=== PATIENT | male | born 1985 | race Caucasian/White ===

== ENCOUNTER 2018-07-01 20:00 | Inpatient (IN) | payer MEDICARE, MEDICAID ==
[~2018-07-01] VITALS: Ht 185.4 cm; Wt 107.0 kg
[~2018-07-01 20:00] MED LIST: BUSP10TA10 PO; CLIN-5 PO; CLON0.2T PO; HYDR-569 PO; OLAN10TA3 PO; QUET200T3 PO; QUET400T3 PO; TRIH5TAB2 PO; VENL75CA55 PO
[2018-07-01] MEDS ORDERED: mag hydrox/Alum hydrox/simeth 30ml oral suspension PO PRN (21:50)
[2018-07-01] MEDS ORDERED: acetaminophen 325mg tablet PO PRN ×2 (21:50)
[2018-07-01] MEDS ORDERED: NICOTINE POLACRILEX 4 MG LOZENGE BC PRN (21:50)
[2018-07-01] MEDS ORDERED: magnesium hydroxide 30ml (MOM) UD suspension PO PRN (21:50)
[2018-07-01 22:29] VITALS: BP 120/70
[2018-07-01] MEDS: hydrOXYzine 25 MG tablet PO PRN (22:45)
[2018-07-01] MEDS: traZODone 50mg tablet PO PRN (22:45)
[2018-07-01] MEDS ORDERED: QUETIAPINE 200 MG TAB.SR.24H PO ONE (23:30)
[2018-07-01] MEDS ORDERED: trihexyphenidyl HCL 5 MG tablet PO ONE (23:30)
[2018-07-01] MEDS ORDERED: cloNIDine 0.1 mg tablet PO ONE (23:30)
[2018-07-02 07:51] LABS: HEMOGLOBIN A1C 5.4 % (4.5-6.2)
[2018-07-02] MEDS: cloNIDine 0.1 mg tablet PO SCH ×2 (07:56→20:26)
[2018-07-02] MEDS: trihexyphenidyl HCL 5 MG tablet PO SCH ×2 (07:56→20:26)
[2018-07-02] MEDS: nicotine 21mg patch - 24 hr TD SCH (07:56)
[2018-07-02] MEDS: QUETIAPINE 200 MG TAB.SR.24H PO SCH ×2 (07:56→20:27)
[2018-07-02] MEDS: busPIRone 5mg tablet PO SCH ×3 (07:57→20:27)
[2018-07-02 08:00] VITALS: BP 102/72
[2018-07-02] MEDS ORDERED: venlafaxine XR 75mg capsule (Q24H) PO SCH ×2 (08:00→09:00)
[2018-07-02] MEDS ORDERED: cloNIDine 0.1 mg tablet PO SCH (08:00)
[2018-07-02 08:01] LABS: CHOL/HDL RATIO 3.4 (0.00-4.99); CHOLESTEROL 147 MG/DL (0-200); HDL CHOLESTEROL 43 MG/DL (35-60); LDL CHOLESTEROL 91 MG/DL (50-100); TRIGLYCERIDES 96 MG/DL (20-135)
[2018-07-02] MEDS ORDERED: venlafaxine XR 75mg capsule (Q24H) PO ONE (09:00)
[2018-07-02] MEDS: HYDROcodone/acetaminophen 5mg/325mg tablet PO PRN ×3 (09:05→19:44)
[2018-07-02] MEDS: diazepam 5mg tablet PO PRN ×3 (09:28→20:32)
[2018-07-02] MEDS: ibuprofen tablet 400 MG TABLET PO PRN (19:44)
[2018-07-02] MEDS: clindamycin 150mg capsule PO SCH (20:27)
[2018-07-02 20:30] VITALS: BP 112/71
[2018-07-02] MEDS: traZODone 50mg tablet PO PRN (20:32)
[2018-07-03] MEDS: HYDROcodone/acetaminophen 5mg/325mg tablet PO PRN ×5 (01:17→20:47)
[2018-07-03] MEDS: ibuprofen tablet 400 MG TABLET PO PRN (01:18)
[2018-07-03] MEDS: nicotine 21mg patch - 24 hr TD SCH (07:42)
[2018-07-03] MEDS: clindamycin 150mg capsule PO SCH ×4 (07:43→20:45)
[2018-07-03] MEDS: busPIRone 5mg tablet PO SCH ×3 (07:43→20:45)
[2018-07-03] MEDS: cloNIDine 0.1 mg tablet PO SCH ×2 (07:43→20:44)
[2018-07-03 08:00] VITALS: BP 111/91
[2018-07-03] MEDS: QUETIAPINE 200 MG TAB.SR.24H PO SCH ×2 (08:02→20:46)
[2018-07-03] MEDS: diazepam 5mg tablet PO PRN ×3 (08:02→20:46)
[2018-07-03] MEDS: trihexyphenidyl HCL 5 MG tablet PO SCH ×2 (08:02→20:44)
[2018-07-03] MEDS: venlafaxine XR 75mg capsule (Q24H) PO SCH (08:03)
[2018-07-03 19:56] VITALS: BP 125/86
[2018-07-03] MEDS: lactobacillus rhamnosus 10,000 MMU CELLS/CAPSULE PO SCH (20:45)
[2018-07-03] MEDS: traZODone 50mg tablet PO PRN ×2 (20:46→21:49)
[2018-07-03] MEDS: hydrOXYzine 25 MG tablet PO PRN (21:49)
[2018-07-04] MEDS: ibuprofen tablet 400 MG TABLET PO PRN ×3 (03:53→19:37)
[2018-07-04] MEDS: HYDROcodone/acetaminophen 5mg/325mg tablet PO PRN ×4 (03:54→17:45)
[2018-07-04 08:00] VITALS: BP 119/70
[2018-07-04] MEDS: venlafaxine XR 75mg capsule (Q24H) PO SCH (08:10)
[2018-07-04] MEDS: nicotine 21mg patch - 24 hr TD SCH (08:10)
[2018-07-04] MEDS: busPIRone 5mg tablet PO SCH ×3 (08:10→21:18)
[2018-07-04] MEDS: lactobacillus rhamnosus 10,000 MMU CELLS/CAPSULE PO SCH ×2 (08:11→19:36)
[2018-07-04] MEDS: cloNIDine 0.1 mg tablet PO SCH ×2 (08:11→19:36)
[2018-07-04] MEDS: clindamycin 150mg capsule PO SCH ×4 (08:11→21:17)
[2018-07-04] MEDS: QUETIAPINE 200 MG TAB.SR.24H PO SCH ×2 (08:11→21:19)
[2018-07-04] MEDS: trihexyphenidyl HCL 5 MG tablet PO SCH ×2 (08:11→19:37)
[2018-07-04] MEDS: diazepam 5mg tablet PO PRN ×3 (09:45→19:36)
[2018-07-04] MEDS ORDERED: HYDROcodone/acetaminophen 10/325mg tab PO ONE (19:20)
[2018-07-04] MEDS: hydrOXYzine 25 MG tablet PO PRN (19:37)
[2018-07-04] MEDS: olanzapine 10mg tablet PO PRN (19:37)
[2018-07-04] MEDS: traZODone 50mg tablet PO PRN ×2 (19:37→21:18)
[2018-07-04 19:56] VITALS: BP 110/61
[2018-07-05] MEDS: nicotine 21mg patch - 24 hr TD SCH ×2 (08:10→08:24)
[2018-07-05] MEDS: lactobacillus rhamnosus 10,000 MMU CELLS/CAPSULE PO SCH ×2 (08:18→20:36)
[2018-07-05] MEDS: venlafaxine XR 75mg capsule (Q24H) PO SCH (08:19)
[2018-07-05] MEDS: busPIRone 5mg tablet PO SCH ×3 (08:19→20:36)
[2018-07-05] MEDS: trihexyphenidyl HCL 5 MG tablet PO SCH ×2 (08:19→20:35)
[2018-07-05] MEDS: clindamycin 150mg capsule PO SCH ×4 (08:19→20:36)
[2018-07-05] MEDS: QUETIAPINE 200 MG TAB.SR.24H PO SCH ×2 (08:20→20:37)
[2018-07-05] MEDS: cloNIDine 0.1 mg tablet PO SCH ×2 (08:20→20:35)
[2018-07-05 08:34] VITALS: BP 123/71
[2018-07-05] MEDS: HYDROcodone/acetaminophen 5mg/325mg tablet PO PRN ×2 (08:38→09:05)
[2018-07-05] MEDS: ibuprofen tablet 400 MG TABLET PO PRN ×3 (08:38→22:19)
[2018-07-05] MEDS: diazepam 5mg tablet PO PRN ×2 (09:05→20:37)
[2018-07-05] MEDS: olanzapine 10mg tablet PO PRN (13:04)
[2018-07-05] MEDS: hydrOXYzine 25 MG tablet PO PRN (16:55)
[2018-07-05] MEDS: HYDROcodone/acetaminophen 10/325mg tab PO PRN ×2 (16:56→20:57)
[2018-07-05 19:36] VITALS: BP 114/84
[2018-07-05] MEDS: traZODone 50mg tablet PO PRN (20:37)
[2018-07-06] MEDS: HYDROcodone/acetaminophen 10/325mg tab PO PRN ×3 (01:16→10:10)
[2018-07-06] MEDS ORDERED: HYDR-3972 PO (08:09)
[2018-07-06] MEDS ORDERED: QUET400T54 PO (08:09)
[2018-07-06] MEDS ORDERED: BUSP10TA10 PO (08:09)
[2018-07-06] MEDS ORDERED: TRIH5TAB2 PO (08:09)
[2018-07-06] MEDS ORDERED: VENL150T3 PO (08:09)
[2018-07-06] MEDS ORDERED: TRAZ-218 PO (08:09)
[2018-07-06] MEDS ORDERED: QUET200T3 PO (08:09)
[2018-07-06] MEDS ORDERED: CLE150C PO (08:09)
[2018-07-06] MEDS ORDERED: VAL5T PO (08:09)
[2018-07-06] MEDS ORDERED: NICO-687 TD (08:09)
[2018-07-06] MEDS ORDERED: CLON0.1T20 PO (08:09)
[2018-07-06 08:18] VITALS: BP 116/64
[2018-07-06] MEDS: busPIRone 5mg tablet PO SCH ×2 (08:28→12:25)
[2018-07-06] MEDS: clindamycin 150mg capsule PO SCH ×2 (08:28→12:25)
[2018-07-06] MEDS: cloNIDine 0.1 mg tablet PO SCH (08:28)
[2018-07-06] MEDS: trihexyphenidyl HCL 5 MG tablet PO SCH (08:28)
[2018-07-06] MEDS: lactobacillus rhamnosus 10,000 MMU CELLS/CAPSULE PO SCH (08:28)
[2018-07-06] MEDS: QUETIAPINE 200 MG TAB.SR.24H PO SCH (08:29)
[2018-07-06] MEDS: venlafaxine XR 75mg capsule (Q24H) PO SCH (08:29)
[2018-07-06] MEDS: nicotine 21mg patch - 24 hr TD SCH (08:30)
[2018-07-06] MEDS: ibuprofen tablet 400 MG TABLET PO PRN (08:53)
[2018-07-06] MEDS: diazepam 5mg tablet PO PRN (08:53)
== END 2018-07-06 13:10 | disposition home or self-care (01) | DRG 885 ==
LOC: ADULT MH 20:00
PROVIDERS: ADMIT Psychiatry & Neurology Psychiatry; ATTEND Psychiatry & Neurology Psychiatry
DX: F33.2 Major depressive disorder, recurrent severe without psychotic features (principal); R45.851 Suicidal ideations; F41.9 Anxiety disorder, unspecified; G89.4 Chronic pain syndrome; F17.200 Nicotine dependence, unspecified, uncomplicated; F43.10 Post-traumatic stress disorder, unspecified; F60.9 Personality disorder, unspecified; K08.89 Other specified disorders of teeth and supporting structures; M54.9 Dorsalgia, unspecified; R68.84 Jaw pain; F12.90 Cannabis use, unspecified, uncomplicated; Z79.899 Other long term (current) drug therapy; Z88.8 Allergy status to other drugs, medicaments and biological substances; Z82.5 Family history of asthma and other chronic lower respiratory diseases
CPT/HCPCS: 36415; 80061; 83036; 84443; 87070; 99285; J3490; Q0177

== ENCOUNTER 2018-08-03 18:10 | Emergency (ER) | payer MEDICARE, MEDICAID ==
[~2018-08-03] VITALS: Ht 185.4 cm; Wt 100.0 kg
[~2018-08-03 18:10] MED LIST changes: +CLE150C PO; -CLIN-5 PO; +CLON0.1T20 PO; -CLON0.2T PO; +HYDR-3972 PO; -HYDR-569 PO; +NICO-687 TD; -OLAN10TA3 PO; -QUET400T3 PO; +QUET400T54 PO; +TRAZ-218 PO; +VAL5T PO; +VENL150T3 PO; -VENL75CA55 PO
[2018-08-03 18:59] LABS: BASOPHILS # (AUTO) 0.1 X10'3 (0-0.2); EOSINOPHILS # (AUTO) 0.3 X10'3 (0-0.9); EOSINOPHILS % (AUTO) 3.7 % (0-6); HEMATOCRIT 41.5 % (42.0-52.0); HEMOGLOBIN 14.2 g/dl (14.0-17.9); LYMPHOCYTES # (AUTO) 1.8 X10'3 (1.1-4.8); LYMPHOCYTES % (AUTO) 23.2 % (21-51); MEAN CORPUSCULAR HEMOGLOBIN 29.2 PG (27.0-31.0); MEAN CORPUSCULAR HGB CONC 34.2 % (33.0-36.5); MEAN CORPUSCULAR VOLUME 85.5 FL (78-98); MEAN PLATELET VOLUME 7.8 FL (7.4-10.4); MONOCYTES # (AUTO) 0.5 X10'3 (0-0.9); MONOCYTES % (AUTO) 6.7 % (2-12); NEUTROPHILS # (AUTO) 5.1 X10'3 (1.8-7.7); NEUTROPHILS % (AUTO) 65.4 % (42-75); PLATELET COUNT 236 X10'3 (140-440); RED BLOOD COUNT 4.85 X10'6 (4.70-6.10); RED CELL DISTRIBUTION WIDTH 14.3 % (11.5-14.5); WHITE BLOOD COUNT 7.8 X10'3 (4.5-11.0)
[2018-08-03 19:14] LABS: ALANINE AMINOTRANSFERASE 30 U/L (12-78); ALBUMIN 3.4 G/DL (3.4-5.0); ALBUMIN/GLOBULIN RATIO 1.1 (1.1-1.5); ALKALINE PHOSPHATASE 73 IU/L (46-116); ANION GAP 11 (8-16); ASPARTATE AMINO TRANSFERASE 18 U/L (10-37); BILIRUBIN,TOTAL 0.3 MG/DL (0.1-1.0); BLOOD UREA NITROGEN 12 MG/DL (7-18); CHLORIDE 107 MMOL/L (99-107); GLUCOSE 94 MG/DL (70-104); POTASSIUM 3.5 MMOL/L (3.5-5.1); SODIUM 146 MMOL/L (135-145); TOTAL CARBON DIOXIDE 28.3 MMOL/L (24-32); TOTAL PROTEIN 6.6 G/DL (6.4-8.2); eGFR 87 ML/MIN
[2018-08-03] MEDS ORDERED: QUETIAPINE 200 MG TAB.SR.24H PO STA (19:20)
[2018-08-03] MEDS ORDERED: DIAZEPAM 5 MG (19:21)
[2018-08-03] MEDS ORDERED: QUETIAPINE 400 MG ×2 (19:21)
[2018-08-03] MEDS ORDERED: VENLAFAXINE HCL 150 MG (19:21)
[2018-08-03] MEDS ORDERED: QUETIAPINE 200 MG (19:21)
[2018-08-03] MEDS ORDERED: TRAZODONE 50 MG (19:21)
[2018-08-03] MEDS ORDERED: Buspirone Hcl 10mg Tab (19:21)
[2018-08-03] MEDS ORDERED: CLONIDINE HCL 0.2 MG (19:21)
[2018-08-03 19:25] LABS: ETHANOL 0.141 GM/DL (0.0-0.010)
[2018-08-03] MEDS: quetiapine 100mg tablet PO STA ×2 (19:47→19:51)
[2018-08-03] MEDS: busPIRone 5mg tablet PO ONE ×2 (19:47→19:51)
[2018-08-03] MEDS: venlafaxine 37.5mg tablet PO ONE ×2 (19:47→19:51)
[2018-08-03] MEDS: diazepam 5mg tablet PO ONE ×2 (19:47→19:51)
[2018-08-03 20:45] LABS: URINE AMPHETAMINE SCREEN POSITIVE (Neg); URINE BARBITUATE SCREEN NEGATIVE (Neg); URINE BENZODIAZEPINES SCREEN POSITIVE (Neg); URINE CANNABINOID SCREEN POSITIVE (Neg); URINE COCAINE SCREEN NEGATIVE (Neg); URINE METHADONE SCREEN NEGATIVE (Neg); URINE OPIATE SCREEN POSITIVE (Neg); URINE PHENCYCLIDINE SCREEN NEGATIVE (Neg)
[2018-08-03 21:32] VITALS: BP 131/74
== END 2018-08-03 21:35 | disposition home or self-care (01) ==
LOC: ER 18:10
DX: F15.10 Other stimulant abuse, uncomplicated (principal); F19.10 Other psychoactive substance abuse, uncomplicated; G89.29 Other chronic pain; F41.9 Anxiety disorder, unspecified; F32.9 Major depressive disorder, single episode, unspecified; F12.90 Cannabis use, unspecified, uncomplicated; Z88.6 Allergy status to analgesic agent; Z79.899 Other long term (current) drug therapy; Z60.2 Problems related to living alone
CPT/HCPCS: 36415; 80053; 80305; 80320; 84443; 85025; 99284

== ENCOUNTER 2018-08-17 20:05 | Emergency (ER) | payer MEDICARE, MEDICAID ==
[~2018-08-17] VITALS: Ht 182.9 cm; Wt 80.0 kg
[~2018-08-17 20:05] MED LIST changes: +Buspirone Hcl 10mg Tab; -CLE150C PO; +CLONIDINE HCL 0.2 MG; +DIAZEPAM 5 MG; -NICO-687 TD; +QUETIAPINE 200 MG; +QUETIAPINE 400 MG; +TRAZODONE 50 MG; +VENLAFAXINE HCL 150 MG
[2018-08-17 21:07] LABS: BASOPHILS % (AUTO) 0.4 % (0-1); EOSINOPHILS # (AUTO) 0.3 X10'3 (0-0.9); EOSINOPHILS % (AUTO) 2.1 % (0-6); HEMATOCRIT 44.6 % (42.0-52.0); HEMOGLOBIN 15.2 g/dl (14.0-17.9); LYMPHOCYTES % (AUTO) 16.7 % (21-51); MEAN CORPUSCULAR HGB CONC 34.1 % (33.0-36.5); MEAN CORPUSCULAR VOLUME 85.1 FL (78-98); MEAN PLATELET VOLUME 7.6 FL (7.4-10.4); MONOCYTES # (AUTO) 0.9 X10'3 (0-0.9); MONOCYTES % (AUTO) 7.7 % (2-12); NEUTROPHILS # (AUTO) 8.8 X10'3 (1.8-7.7); NEUTROPHILS % (AUTO) 73.1 % (42-75); PLATELET COUNT 332 X10'3 (140-440); RED BLOOD COUNT 5.24 X10'6 (4.70-6.10); RED CELL DISTRIBUTION WIDTH 14.1 % (11.5-14.5); WHITE BLOOD COUNT 12.1 X10'3 (4.5-11.0)
[2018-08-17 21:23] LABS: ALANINE AMINOTRANSFERASE 33 U/L (12-78); ALBUMIN/GLOBULIN RATIO 1.1 (1.1-1.5); ALKALINE PHOSPHATASE 75 IU/L (46-116); ANION GAP 8 (8-16); ASPARTATE AMINO TRANSFERASE 18 U/L (10-37); BILIRUBIN,TOTAL 0.5 MG/DL (0.1-1.0); BLOOD UREA NITROGEN 21 MG/DL (7-18); BUN/CREATININE RATIO 17.6 (5.4-32.0); CALCIUM 9.1 MG/DL (8.5-10.1); CHLORIDE 104 MMOL/L (99-107); CREATININE 1.19 MG/DL (0.60-1.10); GLUCOSE 86 MG/DL (70-104); POTASSIUM 3.6 MMOL/L (3.5-5.1); SODIUM 142 MMOL/L (135-145); TOTAL CARBON DIOXIDE 29.6 MMOL/L (24-32); TOTAL PROTEIN 7.7 G/DL (6.4-8.2); eGFR 71 ML/MIN
[2018-08-17 21:32] LABS: ETHANOL < 0.010 GM/DL (0.0-0.010)
[2018-08-17 21:36] LABS: ACETAMINOPHEN < 2.0 UG/ML (10-30)
[2018-08-17 21:40] LABS: CLARITY,URINE TURBID (Clear); COLOR,URINE YELLOW (Yellow); GLUCOSE, URINE NEGATIVE (Neg); KETONES,URINE TRACE mg/dl (Neg); LEUKOCYTE ESTERASE ,URINE NEGATIVE (Neg); NITRITES, URINE NEGATIVE (Neg); OCCULT BLOOD,URINE NEGATIVE (Neg); PROTEIN,URINE 100 mg/dl (Neg); UROBILINOGEN,URINE 0.2 E.U/dL (0.2-1.0)
[2018-08-17 21:45] LABS: UA COLLECTION TYPE CLN CATCH MIDSTREAM
[2018-08-17 21:48] LABS: WBC,URINE NONE SEEN /HPF (0-4)
[2018-08-17 21:49] LABS: AMORPHOUS URATES 2+; BACTERIA,URINE 1+ /HPF (Neg); MUCUS STRANDS MANY /LPF (Neg); RBC,URINE 0-2 /HPF (0-2); SQUAMOUS EPITHELIAL CELL,UR FEW /LPF (FEW)
[2018-08-17 21:50] LABS: CAL OXALATE CRYSTALS FEW /HPF (NEGATIVE); URINE AMPHETAMINE SCREEN NEGATIVE (Neg); URINE BARBITUATE SCREEN NEGATIVE (Neg); URINE BENZODIAZEPINES SCREEN POSITIVE (Neg); URINE CANNABINOID SCREEN POSITIVE (Neg); URINE COCAINE SCREEN NEGATIVE (Neg); URINE METHADONE SCREEN NEGATIVE (Neg); URINE OPIATE SCREEN NEGATIVE (Neg); URINE PHENCYCLIDINE SCREEN NEGATIVE (Neg)
[2018-08-17] MEDS ORDERED: ALPR1TAB7 PO (23:46)
[2018-08-17] MEDS ORDERED: PENI-88 PO (23:46)
[2018-08-17] MEDS ORDERED: BUSP5TAB3 PO (23:58)
[2018-08-17] MEDS ORDERED: CLON-529 PO (23:59)
[2018-08-18] MEDS ORDERED: QUET400T3 PO (00:01)
[2018-08-18] MEDS ORDERED: HYDR-569 PO (00:01)
[2018-08-18] MEDS ORDERED: QUET200T3 PO (00:02)
[2018-08-18] MEDS ORDERED: AMIT-189 PO (00:03)
[2018-08-18] MEDS ORDERED: TRAZ-218 PO (00:05)
[2018-08-18] MEDS ORDERED: VENL150C2 PO (00:06)
[2018-08-18] MEDS ORDERED: traZODone 50mg tablet PO PRN (02:40)
[2018-08-18] MEDS: busPIRone 5mg tablet PO SCH ×3 (07:47→20:34)
[2018-08-18] MEDS: penicillin V potassium 500mg tablet PO SCH ×3 (07:47→20:34)
[2018-08-18] MEDS: venlafaxine 25mg tablet PO SCH ×3 (07:48→20:34)
[2018-08-18] MEDS: cloNIDine 0.1 mg tablet PO SCH ×2 (07:48→20:33)
[2018-08-18] MEDS: quetiapine 100mg tablet PO SCH ×2 (07:49→20:35)
[2018-08-18] MEDS: LORazepam 1 MG tablet PO PRN ×2 (09:01→15:16)
[2018-08-18] MEDS ORDERED: acetaminophen 325mg tablet PO PRN (09:10)
[2018-08-18] MEDS: ibuprofen tablet 400 MG TABLET PO PRN (11:12)
[2018-08-18] MEDS ORDERED: DIAZ-351 PO (17:37)
[2018-08-18] MEDS ORDERED: haloperidol 5mg tablet PO ONE (17:45)
[2018-08-18] MEDS: diazepam 5mg tablet PO PRN (18:35)
[2018-08-18] MEDS ORDERED: HYDROcodone/acetaminophen 10/325mg tab PO ONE (19:10)
[2018-08-18] MEDS: lactobacillus rhamnosus 10,000 MMU CELLS/CAPSULE PO SCH (20:34)
[2018-08-18] MEDS: ziprasidone 20mg capsule PO PRN (20:36)
[2018-08-19] MEDS: penicillin V potassium 500mg tablet PO SCH ×4 (03:13→22:19)
[2018-08-19] MEDS: LORazepam 1 MG tablet PO PRN ×2 (03:13→12:06)
[2018-08-19] MEDS: quetiapine 100mg tablet PO SCH ×2 (08:04→22:19)
[2018-08-19] MEDS: lactobacillus rhamnosus 10,000 MMU CELLS/CAPSULE PO SCH ×2 (08:05→19:11)
[2018-08-19] MEDS: cloNIDine 0.1 mg tablet PO SCH ×2 (08:05→19:11)
[2018-08-19] MEDS: busPIRone 5mg tablet PO SCH ×3 (08:05→22:19)
[2018-08-19] MEDS: venlafaxine 25mg tablet PO SCH ×3 (08:05→22:19)
[2018-08-19] MEDS: diazepam 5mg tablet PO PRN ×2 (08:10→18:35)
[2018-08-19] MEDS: ibuprofen tablet 400 MG TABLET PO PRN (08:10)
[2018-08-19] MEDS: ziprasidone 20mg capsule PO PRN (11:18)
[2018-08-19] MEDS ORDERED: LORazepam 2 mg/ml vial IM ONE (12:40)
[2018-08-19] MEDS ORDERED: diphenhydrAMINE 50 mg/ml inj IM ONE (12:40)
[2018-08-19] MEDS ORDERED: haloperidol lactate 5mg/ml inj IM ONE ×2 (12:40→18:50)
[2018-08-20] MEDS: penicillin V potassium 500mg tablet PO SCH ×2 (02:40→07:23)
[2018-08-20] MEDS: venlafaxine 25mg tablet PO SCH (07:22)
[2018-08-20] MEDS: quetiapine 100mg tablet PO SCH (07:22)
[2018-08-20] MEDS: lactobacillus rhamnosus 10,000 MMU CELLS/CAPSULE PO SCH (07:23)
[2018-08-20] MEDS: LORazepam 1 MG tablet PO PRN (07:23)
[2018-08-20] MEDS: busPIRone 5mg tablet PO SCH (07:23)
[2018-08-20] MEDS: cloNIDine 0.1 mg tablet PO SCH (08:00)
[2018-08-20 08:16] VITALS: BP 101/61
== END 2018-08-20 07:30 ==
LOC: ER 20:07
DX: R45.851 Suicidal ideations (principal); E03.9 Hypothyroidism, unspecified; K02.9 Dental caries, unspecified; N28.9 Disorder of kidney and ureter, unspecified; G89.29 Other chronic pain; F41.9 Anxiety disorder, unspecified; F32.9 Major depressive disorder, single episode, unspecified; F17.200 Nicotine dependence, unspecified, uncomplicated; F12.90 Cannabis use, unspecified, uncomplicated; F15.90 Other stimulant use, unspecified, uncomplicated; F19.90 Other psychoactive substance use, unspecified, uncomplicated; Z88.5 Allergy status to narcotic agent; Z79.899 Other long term (current) drug therapy; Z95.1 Presence of aortocoronary bypass graft
CPT/HCPCS: 36415; 80053; 80305; 80320; 80329; 81001; 84443; 85025; 96372; 99285

== ENCOUNTER 2019-01-09 15:04 | Emergency (ER) | payer MEDICARE, MEDICAID ==
[~2019-01-09] VITALS: Ht 182.9 cm; Wt 109.0 kg
[~2019-01-09 15:04] MED LIST changes: +ALPR1TAB7 PO; -BUSP10TA10 PO; +BUSP5TAB3 PO; -Buspirone Hcl 10mg Tab; +CLON-529 PO; -CLON0.1T20 PO; -CLONIDINE HCL 0.2 MG; +DIAZ-351 PO; -DIAZEPAM 5 MG; -HYDR-3972 PO; +HYDR-4383 PO; +PENI-88 PO; +QUET400T3 PO; -QUET400T54 PO; -QUETIAPINE 200 MG; -QUETIAPINE 400 MG; -TRAZODONE 50 MG; -TRIH5TAB2 PO; -VAL5T PO; +VENL150C2 PO; -VENL150T3 PO; -VENLAFAXINE HCL 150 MG
[2019-01-09 15:32] VITALS: BP 124/69
[2019-01-09] MEDS ORDERED: CEPH500C5 PO (17:17)
[2019-01-09] MEDS ORDERED: ACET-3068 PO (17:17)
[2019-01-09] MEDS ORDERED: CefTRIAXone/D5W-Rocephin 1gm 50 ML IV ONE (17:20)
== END 2019-01-09 18:33 | disposition home or self-care (01) ==
LOC: ER 15:05
DX: L03.114 Cellulitis of left upper limb (principal); G89.29 Other chronic pain; M54.9 Dorsalgia, unspecified; F17.200 Nicotine dependence, unspecified, uncomplicated; F12.90 Cannabis use, unspecified, uncomplicated; F15.90 Other stimulant use, unspecified, uncomplicated; Z88.6 Allergy status to analgesic agent
CPT/HCPCS: 73080; 76881; 96365; 99284; J0696

== ENCOUNTER 2019-08-04 09:05 | Emergency (ER) | payer MEDICARE, MEDICAID ==
[~2019-08-04] VITALS: Ht 185.4 cm; Wt 106.8 kg
[~2019-08-04 09:05] MED LIST changes: -ALPR1TAB7 PO; -BUSP5TAB3 PO; -CLON-529 PO; +CLON0.2T PO; -DIAZ-351 PO; +DIAZ5TAB PO; -HYDR-4383 PO; -PENI-88 PO; -QUET200T3 PO; +QUET200T5 PO; -QUET400T3 PO; +QUET400T5 PO; -TRAZ-218 PO; +TRIH2TAB3 PO; -VENL150C2 PO
[2019-08-04] MEDS ORDERED: TETanus/Pertussis (Acell)/Diphther VAC/PF (Tdap-Adult) 0.5ml syringe IM ONE (09:20)
[2019-08-04] MEDS ORDERED: LIDOcaine 1% w/EPI 1:200,000 injection 10mL vial IM ONE (09:20)
[2019-08-04] MEDS ORDERED: LIDOcaine 1% W/epiNEPHrine 1:100,000 20ml vial IJ ONE (09:20)
[2019-08-04] MEDS ORDERED: HYDROcodone/acetaminophen 5mg/325mg tablet PO ONE (09:20)
[2019-08-04 10:34] VITALS: BP 116/82
[2019-08-04] MEDS ORDERED: ACET-3067 PO (10:34)
== END 2019-08-04 10:44 | disposition home or self-care (01) ==
LOC: MERGE 09:07 → ER 09:07
DX: S51.012A Laceration without foreign body of left elbow, initial encounter (principal); F31.9 Bipolar disorder, unspecified; Z79.899 Other long term (current) drug therapy; W26.8XXA Contact with other sharp object(s), not elsewhere classified, initial encounter; Y93.89 Activity, other specified; Y92.89 Other specified places as the place of occurrence of the external cause; Y99.8 Other external cause status
CPT/HCPCS: 12032; 12053; 73080; 90471; 99284

== ENCOUNTER 2022-05-26 21:03 | Emergency (ER) | payer MEDICARE, MEDICAID ==
[~2022-05-26] VITALS: Ht 185.4 cm; Wt 104.5 kg
[2022-05-26 21:19] VITALS: BP 119/78
== END 2022-05-26 22:43 | disposition home or self-care (01) ==
LOC: ER 21:03
DX: F31.9 Bipolar disorder, unspecified (principal); G89.29 Other chronic pain; F41.9 Anxiety disorder, unspecified; F12.90 Cannabis use, unspecified, uncomplicated; F15.90 Other stimulant use, unspecified, uncomplicated; Z72.89 Other problems related to lifestyle; Z60.2 Problems related to living alone; Z88.6 Allergy status to analgesic agent; Z79.899 Other long term (current) drug therapy
CPT/HCPCS: 99281

== ENCOUNTER 2022-08-31 16:44 | Emergency (ER) | payer BC, MEDICAID ==
[~2022-08-31 16:44] MED LIST changes: +BUSP15TA3 PO; +CLON0.1T2 PO; -CLON0.2T PO; +DIAZ-351 PO; -DIAZ5TAB PO; +DIVA500T9 PO; +HYDR-3686 PO; +IBUP-1984 PO; +NICO-687 TD; +NICO-907 BC; +OLAN5TAB75 PO; -QUET200T5 PO; -QUET400T5 PO
--- NOTE | 2022-08-31 17:33 | NUR ---
Spoke with Poison Control and received following recommendations: Seizure precautions, monitor for 24 hours, continuous cardiac monitoring, monitor BP, monitor for EPS, repeat EKG Q4 hours. Labs: CMP, Tylenol, ASA, and UA Drug/Tox. Ammonia and Depakote labs Q3-4 hours. Treat with activated charcoal now if patient can tolerate. Treat Seizures with benzos, intubate if multiple seizures occurring. Treat wide QRS with bicarb until QRS below 120. IV fluids and pressors (Levophed recommended) for low BP or heart rate.
[2022-08-31 17:54] LABS: BASOPHILS # (AUTO) 0.1 X10'3 (0-0.2); BASOPHILS % (AUTO) 0.7 % (0-1); EOSINOPHILS # (AUTO) 0.3 X10'3 (0-0.9); EOSINOPHILS % (AUTO) 2.8 % (0-6); HEMATOCRIT 37.2 % (42.0-52.0); HEMOGLOBIN 12.5 g/dl (14.0-17.9); LYMPHOCYTES % (AUTO) 21.6 % (21-51); MEAN CORPUSCULAR HEMOGLOBIN 26.6 PG (27.0-31.0); MEAN CORPUSCULAR HGB CONC 33.7 g/dL (33.0-36.5); MEAN PLATELET VOLUME 7.3 FL (7.4-10.4); MONOCYTES # (AUTO) 1.1 X10'3 (0-0.9); MONOCYTES % (AUTO) 11.5 % (2-12); NEUTROPHILS % (AUTO) 63.4 % (42-75); PLATELET COUNT 280 X10'3 (140-440); RED BLOOD COUNT 4.71 X10'6 (4.70-6.10); RED CELL DISTRIBUTION WIDTH 14.1 % (11.5-14.5); WHITE BLOOD COUNT 9.5 X10'3 (4.5-11.0)
[2022-08-31 18:09] LABS: ALANINE AMINOTRANSFERASE 21 U/L (12-78); ALBUMIN 3.3 G/DL (3.4-5.0); ALBUMIN/GLOBULIN RATIO 0.9 (1.1-1.5); ALKALINE PHOSPHATASE 63 IU/L (46-116); ANION GAP 8 (8-16); ASPARTATE AMINO TRANSFERASE 18 U/L (10-37); BILIRUBIN,TOTAL 0.3 MG/DL (0.1-1.0); BLOOD UREA NITROGEN 17 MG/DL (7-18); CHLORIDE 104 MMOL/L (99-107); CREATININE 0.81 MG/DL (0.60-1.10); GLUCOSE 79 MG/DL (70-104); POTASSIUM 3.5 MMOL/L (3.5-5.1); SODIUM 140 MMOL/L (135-145); TOTAL CARBON DIOXIDE 28.5 MMOL/L (24-32); TOTAL PROTEIN 6.8 G/DL (6.4-8.2); eGFR > 90 ML/MIN
[2022-08-31 18:18] LABS: ETHANOL < 0.010 GM/DL (0.0-0.010); VALPROATE 8 UG/ML (50-100)
[2022-08-31 18:26] LABS: ACETAMINOPHEN < 2.0 UG/ML (10-30)
== END 2022-08-31 18:02 | disposition left against medical advice (07) ==
LOC: ER 16:45
DX: T50.901A Poisoning by unspecified drugs, medicaments and biological substances, accidental (unintentional), initial encounter (principal); G89.29 Other chronic pain; M54.50 Low back pain, unspecified; F31.9 Bipolar disorder, unspecified; F12.90 Cannabis use, unspecified, uncomplicated; F15.20 Other stimulant dependence, uncomplicated; Z88.5 Allergy status to narcotic agent; Z88.8 Allergy status to other drugs, medicaments and biological substances; Y92.89 Other specified places as the place of occurrence of the external cause
CPT/HCPCS: 36415; 71045; 80053; 80164; 80320; 80329; 82140; 84443; 85025; 93005; 99285

== ENCOUNTER 2023-04-30 00:20 | Emergency (ER) | payer BC, MEDICAID ==
[~2023-04-30] VITALS: Ht 182.9 cm; Wt 95.5 kg
[2023-04-30] MEDS ORDERED: diphenhydrAMINE 50 mg/ml inj IM ONE (00:30)
[2023-04-30] MEDS ORDERED: haloperidol lactate 5mg/ml inj IM ONE (00:30)
[2023-04-30] MEDS ORDERED: LORazepam 2 mg/ml vial IM ONE (00:30)
[2023-04-30 01:20] LABS: HEMOGLOBIN 13.2 g/dl (14.0-17.9); RED CELL DISTRIBUTION WIDTH 14.1 % (11.5-14.5)
[2023-04-30 01:22] LABS: ALANINE AMINOTRANSFERASE 25 U/L (12-78); ALBUMIN/GLOBULIN RATIO 1.2 (1.1-1.5); ALKALINE PHOSPHATASE 76 IU/L (46-116); ANION GAP 6 (8-16); ASPARTATE AMINO TRANSFERASE 18 U/L (10-37); BASOPHILS % (AUTO) 0.3 % (0-1); BILIRUBIN,TOTAL 0.5 MG/DL (0.1-1.0); BLOOD UREA NITROGEN 12 MG/DL (7-18); BUN/CREATININE RATIO 12.4 (10.0-20.0); CALCIUM 9.2 MG/DL (8.5-10.1); CHLORIDE 108 MMOL/L (99-107); CREATININE 0.97 MG/DL (0.60-1.10); EOSINOPHILS # (AUTO) 0.1 X10'3 (0-0.9); EOSINOPHILS % (AUTO) 0.6 % (0-6); GLUCOSE 95 MG/DL (70-104); HEMATOCRIT 39.7 % (42.0-52.0); LYMPHOCYTES # (AUTO) 1.5 X10'3 (1.1-4.8); LYMPHOCYTES % (AUTO) 15.1 % (21-51); MEAN CORPUSCULAR HEMOGLOBIN 26.8 PG (27.0-31.0); MEAN CORPUSCULAR HGB CONC 33.3 g/dL (33.0-36.5); MEAN CORPUSCULAR VOLUME 80.4 FL (78-98); MEAN PLATELET VOLUME 7.9 FL (7.4-10.4); MONOCYTES # (AUTO) 0.8 X10'3 (0-0.9); MONOCYTES % (AUTO) 8.5 % (2-12); NEUTROPHILS # (AUTO) 7.4 X10'3 (1.8-7.7); NEUTROPHILS % (AUTO) 75.5 % (42-75); PLATELET COUNT 276 X10'3 (140-440); POTASSIUM 3.9 MMOL/L (3.5-5.1); RED BLOOD COUNT 4.94 X10'6 (4.70-6.10); SODIUM 143 MMOL/L (135-145); TOTAL CARBON DIOXIDE 29.3 MMOL/L (24-32); TOTAL PROTEIN 7.4 G/DL (6.4-8.2); WHITE BLOOD COUNT 9.8 X10'3 (4.5-11.0); eGFR 87 ML/MIN
[2023-04-30 02:12] LABS: ETHANOL < 0.010 GM/DL (0.0-0.010)
[2023-04-30 07:01] VITALS: BP 107/70
--- NOTE | 2023-04-30 07:03 | NUR ---
PT RESTING IN RGT LATERAL POSITION ,PLACED THE PULSE OX MONITOR ON PT FINGER.NO DISTRESS NOTED,VS WNL.
--- NOTE | 2023-04-30 10:23 | NUR ---
pt resting in bed quietly ,vitals as follow: BP 128/87,RR18,HR 72 NSR,SPO2 98% RA.
[2023-04-30 10:41] LABS: URINE AMPHETAMINE SCREEN POSITIVE (Neg); URINE BARBITUATE SCREEN NEGATIVE (Neg); URINE BENZODIAZEPINES SCREEN NEGATIVE (Neg); URINE CANNABINOID SCREEN POSITIVE (Neg); URINE COCAINE SCREEN NEGATIVE (Neg); URINE METHADONE SCREEN NEGATIVE (Neg); URINE OPIATE SCREEN NEGATIVE (Neg); URINE PHENCYCLIDINE SCREEN NEGATIVE (Neg)
--- NOTE | 2023-04-30 13:50 | NUR ---
PACKET FAXED AND HAND DELIVERIED TO SENIOR SOFTWARE PROJECT MANAGER
== END 2023-04-30 17:25 | disposition home or self-care (01) ==
LOC: ER 00:21
DX: F15.959 Other stimulant use, unspecified with stimulant-induced psychotic disorder, unspecified (principal); Z20.822 Contact with and (suspected) exposure to COVID-19; F12.90 Cannabis use, unspecified, uncomplicated; Z88.5 Allergy status to narcotic agent; Z88.8 Allergy status to other drugs, medicaments and biological substances
CPT/HCPCS: 36415; 80053; 80305; 80320; 85025; 87811; 93005; 96372; 99284; J1200; J1630; J2060

== ENCOUNTER 2023-05-02 15:59 | Emergency (ER) | payer BC, MEDICAID ==
[~2023-05-02] VITALS: Ht 185.4 cm; Wt 97.8 kg
[2023-05-02 17:59] LABS: BASOPHILS # (AUTO) 0.1 X10'3 (0-0.2); BASOPHILS % (AUTO) 0.8 % (0-1); EOSINOPHILS # (AUTO) 0.2 X10'3 (0-0.9); EOSINOPHILS % (AUTO) 1.7 % (0-6); HEMATOCRIT 40.8 % (42.0-52.0); HEMOGLOBIN 13.6 g/dl (14.0-17.9); LYMPHOCYTES # (AUTO) 2.4 X10'3 (1.1-4.8); LYMPHOCYTES % (AUTO) 25.9 % (21-51); MEAN CORPUSCULAR HEMOGLOBIN 26.8 PG (27.0-31.0); MEAN CORPUSCULAR HGB CONC 33.3 g/dL (33.0-36.5); MEAN CORPUSCULAR VOLUME 80.5 FL (78-98); MEAN PLATELET VOLUME 7.7 FL (7.4-10.4); MONOCYTES # (AUTO) 0.8 X10'3 (0-0.9); MONOCYTES % (AUTO) 8.8 % (2-12); NEUTROPHILS # (AUTO) 5.8 X10'3 (1.8-7.7); NEUTROPHILS % (AUTO) 62.8 % (42-75); PLATELET COUNT 253 X10'3 (140-440); RED BLOOD COUNT 5.06 X10'6 (4.70-6.10); RED CELL DISTRIBUTION WIDTH 14.4 % (11.5-14.5); WHITE BLOOD COUNT 9.2 X10'3 (4.5-11.0)
[2023-05-02 18:13] LABS: ALANINE AMINOTRANSFERASE 27 U/L (12-78); ALBUMIN 3.8 G/DL (3.4-5.0); ALBUMIN/GLOBULIN RATIO 1.1 (1.1-1.5); ALKALINE PHOSPHATASE 79 IU/L (46-116); ANION GAP 7 (8-16); ASPARTATE AMINO TRANSFERASE 20 U/L (10-37); BILIRUBIN,TOTAL 0.3 MG/DL (0.1-1.0); BLOOD UREA NITROGEN 12 MG/DL (7-18); BUN/CREATININE RATIO 13.8 (10.0-20.0); CALCIUM 8.9 MG/DL (8.5-10.1); CHLORIDE 104 MMOL/L (99-107); CREATININE 0.87 MG/DL (0.60-1.10); GLUCOSE 99 MG/DL (70-104); POTASSIUM 3.9 MMOL/L (3.5-5.1); SODIUM 138 MMOL/L (135-145); TOTAL CARBON DIOXIDE 27.4 MMOL/L (24-32); TOTAL PROTEIN 7.3 G/DL (6.4-8.2); eGFR > 90 ML/MIN
[2023-05-02 18:22] LABS: ETHANOL < 0.010 GM/DL (0.0-0.010)
--- NOTE | 2023-05-02 20:09 | NUR ---
MOM IS TAKING PHONE HOME
[2023-05-02 20:25] LABS: CLARITY,URINE CLEAR (Clear); COLOR,URINE YELLOW (Yellow); GLUCOSE, URINE NEGATIVE (Neg); KETONES,URINE NEGATIVE (Neg); LEUKOCYTE ESTERASE ,URINE NEGATIVE (Neg); NITRITES, URINE NEGATIVE (Neg); OCCULT BLOOD,URINE NEGATIVE (Neg); PROTEIN,URINE NEGATIVE (Neg); UROBILINOGEN,URINE 0.2 E.U/dL (0.2-1.0)
[2023-05-02 20:32] LABS: UA COLLECTION TYPE CLN CATCH MIDSTREAM
[2023-05-02 20:40] LABS: URINE AMPHETAMINE SCREEN POSITIVE (Neg); URINE BARBITUATE SCREEN NEGATIVE (Neg); URINE BENZODIAZEPINES SCREEN NEGATIVE (Neg); URINE CANNABINOID SCREEN NEGATIVE (Neg); URINE COCAINE SCREEN NEGATIVE (Neg); URINE METHADONE SCREEN NEGATIVE (Neg); URINE OPIATE SCREEN NEGATIVE (Neg); URINE PHENCYCLIDINE SCREEN NEGATIVE (Neg)
--- NOTE | 2023-05-02 21:30 | NUR ---
LN received report from ER nurse prior to pt transfer to [facility].
--- NOTE | 2023-05-02 22:10 | NUR ---
Pt transferred to [facility] at approx 2140 via walking with staff. Pt appears stable. Pt was asleep when LN went to do admission.
--- NOTE | 2023-05-03 00:57 | NUR ---
Pt requested sandwich and crackers, sleeping well att.
--- NOTE | 2023-05-03 02:55 | NUR ---
Pt sleeping well, no changes in behavior.
--- NOTE | 2023-05-03 04:55 | NUR ---
Pt stable, sleeping well att.
--- NOTE | 2023-05-03 06:00 | NUR ---
Patient resting in bed. Slept well through night. Received report from night nurse STEPHANIA HAMILTON. Assumed care of patient. Will continue to monitor.
[2023-05-03] MEDS ORDERED: OLAN15TA20 PO (08:25)
[2023-05-03] MEDS ORDERED: CLON0.1T PO (08:25)
[2023-05-03] MEDS ORDERED: TRAZ-251 PO (08:25)
[2023-05-03] MEDS ORDERED: HYDR-3686 PO (08:25)
[2023-05-03] MEDS ORDERED: BUSP10TA11 PO (08:25)
[2023-05-03] MEDS ORDERED: nicotine 21mg patch - 24 hr TD ONE (09:30)
--- NOTE | 2023-05-03 09:40 | NUR ---
All medications taken as ordered. Patient has no complaints and appropriate with peers and staff.
[2023-05-03] MEDS: cloNIDine 0.1 mg tablet PO SCH ×2 (10:21→20:42)
[2023-05-03] MEDS: hydrOXYzine 25 MG tablet PO SCH ×3 (10:21→15:30)
[2023-05-03] MEDS: busPIRone 5mg tablet PO SCH ×3 (10:21→20:41)
[2023-05-03] MEDS ORDERED: acetaminophen 325mg tablet PO ONE (11:20)
--- NOTE | 2023-05-03 12:00 | NUR ---
Patient sitting at end of bed eating lunch at this time and appropriate with peers and staff.
[2023-05-03] MEDS: NICOTINE POLACRILEX 2 MG LOZENGE BC PRN ×3 (14:09→18:49)
--- NOTE | 2023-05-03 15:30 | NUR ---
Pt getting irritable with roommate and has been asked multiple times not to yell at other patients. Otherwise he is sleeping. Answers and responds appropriately.
--- NOTE | 2023-05-03 17:24 | NUR ---
patient hasa visitor at this time. At end of bed eating dinner. Will report to night nurse.
--- NOTE | 2023-05-03 20:05 | NUR ---
Pt resting in bed, cooperative, denies SI and HI. Pt requests nicotine lozenge.
--- NOTE | 2023-05-03 20:27 | NUR ---
1:1 nurse report given to Ani at [facility].
--- NOTE | 2023-05-03 20:30 | NUR ---
Pt has been accepted at [facility] in [place] in the AM P/U time at 0845. Dr England nurse to nurse
[2023-05-03] MEDS ORDERED: traZODone 50mg tablet PO SCH (21:00)
[2023-05-03] MEDS ORDERED: OLANZapine 5mg rapidly disint. tablet PO SCH (21:00)
--- NOTE | 2023-05-03 23:04 | NUR ---
Pt appears to be sleeping.
[2023-05-04] MEDS ORDERED: HYDROcodone/acetaminophen 5mg/325mg tablet PO ONE (00:15)
[2023-05-04] MEDS: NICOTINE POLACRILEX 2 MG LOZENGE BC PRN ×2 (00:22→07:38)
--- NOTE | 2023-05-04 00:51 | NUR ---
pt awake, c/o 8/10 pain in lower back, provider notified and order received.
[2023-05-04] MEDS: hydrOXYzine 25 MG tablet PO SCH ×2 (00:55→07:38)
--- NOTE | 2023-05-04 02:43 | NUR ---
Pt appears to be sleeping.
--- NOTE | 2023-05-04 05:24 | NUR ---
pt appears to be sleeping.
[2023-05-04 05:49] VITALS: BP 116/72
[2023-05-04] MEDS: cloNIDine 0.1 mg tablet PO SCH (07:38)
[2023-05-04] MEDS: busPIRone 5mg tablet PO SCH (07:38)
[2023-05-04] MEDS ORDERED: ibuprofen tablet 400 MG TABLET PO ONE (08:05)
[2023-05-04] MEDS ORDERED: acetaminophen 325mg tablet PO ONE (08:05)
--- NOTE | 2023-05-04 08:07 | NUR ---
Books Salesperson here to cigar packer and picker pt and take him to [facility]
--- NOTE | 2023-05-04 10:43 | NUR ---
Nurse to nurse report to [facility].
== END 2023-05-04 08:17 | disposition admitted as inpatient to this hospital (09) ==
LOC: ER 15:59
DX: R45.851 Suicidal ideations (principal); Z20.822 Contact with and (suspected) exposure to COVID-19; F19.10 Other psychoactive substance abuse, uncomplicated; F17.200 Nicotine dependence, unspecified, uncomplicated; F12.90 Cannabis use, unspecified, uncomplicated; F15.20 Other stimulant dependence, uncomplicated; Z88.5 Allergy status to narcotic agent; Z88.8 Allergy status to other drugs, medicaments and biological substances; Z56.0 Unemployment, unspecified
CPT/HCPCS: 36415; 80053; 80305; 80320; 81003; 84443; 85025; 87811; 99285; Q0177

== ENCOUNTER 2024-07-07 21:11 | Emergency (ER) | payer BC, MEDICAID ==
[~2024-07-07] VITALS: Ht 185.4 cm; Wt 86.4 kg
[~2024-07-07 21:11] MED LIST changes: +BUSP10TA11 PO; -BUSP15TA3 PO; +CLON0.1T PO; -CLON0.1T2 PO; -DIAZ-351 PO; -DIVA500T9 PO; -IBUP-1984 PO; -NICO-687 TD; -NICO-907 BC; +OLAN15TA20 PO; -OLAN5TAB75 PO; +TRAZ-251 PO; -TRIH2TAB3 PO
[2024-07-07 21:51] VITALS: BP 119/83; PULSE 83; RESP 16; O2SAT 98
[2024-07-07] MEDS ORDERED: LIDOcaine 1% 30ml preserv. free vial SQ STA (23:28)
[2024-07-08] MEDS ORDERED: tetanus & diphtheria toxoid (Td) vaccine 0.5ml IMVAC ONE
[2024-07-08 00:31] VITALS: TEMP 97.6
== END 2024-07-08 00:33 | disposition home or self-care (01) ==
LOC: ER 21:11
DX: S91.012A Laceration without foreign body, left ankle, initial encounter (principal); G89.29 Other chronic pain; M54.9 Dorsalgia, unspecified; F41.9 Anxiety disorder, unspecified; F41.0 Panic disorder [episodic paroxysmal anxiety]; F32.A Depression, unspecified; F10.90 Alcohol use, unspecified, uncomplicated; F12.90 Cannabis use, unspecified, uncomplicated; F15.90 Other stimulant use, unspecified, uncomplicated; Z88.8 Allergy status to other drugs, medicaments and biological substances; Z79.899 Other long term (current) drug therapy; Z95.1 Presence of aortocoronary bypass graft; Z56.0 Unemployment, unspecified; X58.XXXA Exposure to other specified factors, initial encounter; Y93.89 Activity, other specified; Y92.89 Other specified places as the place of occurrence of the external cause; Y99.8 Other external cause status
CPT/HCPCS: 12001; 73630; 90715; 99283; A6258

== ENCOUNTER 2024-07-21 10:59 | Emergency (ER) | payer BC, MEDICAID ==
[~2024-07-21] VITALS: Ht 185.4 cm; Wt 80.0 kg
[2024-07-21 11:12] VITALS: BP 124/55; PULSE 79; RESP 16; TEMP 97.3; O2SAT 98
== END 2024-07-21 11:50 | disposition home or self-care (01) ==
LOC: ER 11:00
DX: S91.012D Laceration without foreign body, left ankle, subsequent encounter (principal); F12.90 Cannabis use, unspecified, uncomplicated; F15.90 Other stimulant use, unspecified, uncomplicated; F10.90 Alcohol use, unspecified, uncomplicated; G89.29 Other chronic pain; M54.9 Dorsalgia, unspecified; F41.9 Anxiety disorder, unspecified; F32.A Depression, unspecified; F41.0 Panic disorder [episodic paroxysmal anxiety]; F17.220 Nicotine dependence, chewing tobacco, uncomplicated; Z88.8 Allergy status to other drugs, medicaments and biological substances; Z79.899 Other long term (current) drug therapy; Z56.0 Unemployment, unspecified; Z60.2 Problems related to living alone; X58.XXXD Exposure to other specified factors, subsequent encounter
CPT/HCPCS: 99281

== ENCOUNTER 2025-08-16 08:43 | Emergency (ER) | payer BC, MEDICAID ==
[~2025-08-16] VITALS: Ht 188 cm; Wt 86.4 kg
[2025-08-16 08:44] VITALS: BP 111/72; PULSE 79; RESP 16; TEMP 98.6; O2SAT 100
--- NOTE | 2025-08-16 08:59 | Physician Documentation ---
History of Present Illness ~ General Chief Complaint: See Chief Complaint Stated Complaint: MED CLEARANCE REQUESTING EKG Time Seen by MD: 08:45 Primary Medical Doctor: None History of Present Illness Initial Comments 9-year-old male presents to the ED with a request for an EKG secondary to ongoing methadone administration through [facility]. Denies any chest pain shortness of breath nausea vomiting. He states he needs a EKG primarily to maintain his treatment plan. Denies any recent cardiac events. 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 Scheduled Buspirone Hcl* (Buspar*), 1 TAB PO TID, (Reported) Clonidine Hcl (Clonidine Hcl), 0.1 MG PO BID, (Reported) Hydroxyzine Hcl* (Atarax*), 3 TAB PO Q6H, (Reported) Olanzapine (Olanzapine), 1 TAB PO HS, (Reported) Trazodone HCl (Trazodone HCl), 4 TAB PO HS, (Reported) Past Medical History Past Medical History: Chronic Back Pain, *PSYCH*, Anxiety, Depression, Panic Disorder Past Surgical History: noncontributory Patient History: (CABG) Coronary artery bypass grafting FATHER, Onset:Unknown FH: emphysema FATHER, Onset:Unknown Other Past Family History: Pneumonia (father) Alcohol Use: Heavy Drug Use: marijuana, methamphetamine Lives with: Alone Lives In: Home Occupation: unemployed, disabled Review of Systems All Other Systems at this time: Reviewed and Negative ROS As stated above in the HPI, otherwise all systems are reviewed and negative. Physical Exam Physical Exam Vital Signs: Temperature: 98.6, Source: Temporal, Heart Rate: 79, Respiratory Rate: 16, BP: 111/72, Pulse Oximetry: 100, Weight: 86.360 Oxygen Flow Rate: 0 Physical Exam General: Alert, no apparent distress. cardioivascular: Normal sinus rhythm Neurologic: Oriented x4. Psychiatric: Normal mood and affect. Skin: Normal color, warm and dry. No edema, no ecchymosis. Progress Results/Orders Results/Orders Vital Signs 08/16/25 08:44 Temp 98.6 Pulse 79 Resp 16 B/P (MAP) 111/72 Pulse Ox 100 O2 Flow Rate 0 Medical Decision Making Findings Patient did not present with the signs of ST-elevation or depression or any arrhythmias that were concerning. Normal axis. Departure Disposition: 01 HOME / SELF CARE / HOMELESS Impression: Primary Impression: Polysubstance abuse Condition: Improved Discharge Instructions: Opioid Use Disorder Additional Instructions: Patient is medically cleared for ongoing methadone treatment. His ECG was reassuring. Referrals: NO PRIMARY CARE PROVIDER (PCP) Education Educated: Patient Educated regarding: diagnosis Signature Scribe Signature: t Attestation: Scribed for Marcia Orellana Molding Machine Setter by Marcia Marcum NP . 08/16/25 08:59 MARCIA ORELLANA NP Aug 16, 2025 08:59
--- NOTE | 2025-08-16 09:01 | ELECTROCARDIOGRAPH REPORT ---
[facility] Test Date: 2025-08-16 Test Time: 08:51:01 Pat Name: RONEN RAMOS Department: EMERGENCY ROOM Room: Gender: M Architectural Modeler: PAULO : 1985 Requested By: MARCIA ORELLANA Order Number: [id number] Reading MD: Measurements Intervals [place] Rate: 88 P: 76 FL: 140 QRS: 52 QRSD: 86 T: 17 QT: 358 QTc: 434 Interpretive Statements Sinus rhythm Abnormal R-wave progression, early transition Consider left ventricular hypertrophy Please click the below link to view image of tracing.
== END 2025-08-16 09:10 | disposition home or self-care (01) ==
LOC: ER 08:44
DX: F19.10 Other psychoactive substance abuse, uncomplicated (principal); F12.90 Cannabis use, unspecified, uncomplicated; F15.90 Other stimulant use, unspecified, uncomplicated; F41.9 Anxiety disorder, unspecified; F32.A Depression, unspecified; G89.29 Other chronic pain; Z88.5 Allergy status to narcotic agent; Z95.1 Presence of aortocoronary bypass graft; Z88.8 Allergy status to other drugs, medicaments and biological substances; Z79.899 Other long term (current) drug therapy; Z56.0 Unemployment, unspecified; Z60.2 Problems related to living alone
CPT/HCPCS: 93005; 99283